=== PATIENT | male | born 1935 | race Caucasian/White ===

== ENCOUNTER 2017-01-03 15:19 | Inpatient (IN) | payer OTHER ==
[~2017-01-03] VITALS: Ht 180.3 cm; Wt 82.8 kg
--- NOTE | ~2017-01-03 | CON ---
[place], [place] REPORT OF CONSULTATION NAME: THEA MANNING UNIT #: [id number] ROOM: 422 DOCTOR: ESEQUIEL SUBRAMANIAN MD BIRTHDATE: [birth year] DOS: 01/03/2017 CARDIOLOGY CONSULTATION REASON FOR CONSULTATION: Elevated troponin level. HISTORY OF PRESENT ILLNESS: The patient is an 81-year-old man with a history of dementia who is brought in by emergency medical services from home at his 's request. He has become increasingly disabled and debilitated. He is now too weak to ambulate on his own and his is not strong enough to carry him. A visiting nurse recognized that he was becoming more weak and difficult to care for and therefore suggested that he be brought to the hospital for further assessment. The patient answers questions with a clear strong voice, but he is obviously confused and answers many of the questions with I do not remember. He denies chest pain, dyspnea, nausea, abdominal pain or other symptoms at this time, but does admit that he is too weak to get out of bed. Past history is not immediately available. The patient does admit that he has had heart disease with a heart catheterization in the past. He states that his physicians are at the [facility] in [place]. PAST HISTORY: Includes 1. Atrial fibrillation. 2. Atherosclerotic heart disease, status post previous myocardial infarction. Details not known. 3. History of cerebrovascular events. Details not known. 4. Status post carotid endarterectomy. 5. Essential hypertension. 6. Hyperlipidemia. 7. Glaucoma with secondary blindness. 8. Type 2 diabetes mellitus. 9. Status post appendectomy and cholecystectomy. FAMILY HISTORY: Positive for coronary artery disease in both parents. His mother in her 60s and father in his 40s. MEDICATIONS: Prior to admission, timolol eyedrops daily, Alphagan eyedrops b.i.d., apixaban 2.5 mg b.i.d., clopidogrel 75 mg daily, cyanocobalamin 500 mcg daily, glipizide 10 mg daily, metoprolol 25 mg b.i.d., and simvastatin 20 mg at bedtime. ALLERGIES: The chart indicates that he is ALLERGIC TO HYDROMORPHONE FROM DILAUDID. REVIEW OF SYSTEMS: The patient denies all symptoms aside from weakness on a 10-point review of systems. SOCIAL HISTORY: The patient is and lives with his . He does not [place], [place] REPORT OF CONSULTATION NAME: THEA MANNING UNIT #: [id number] ROOM: 422 DOCTOR: ESEQUIEL SUBRAMANIAN MD BIRTHDATE: [birth year] currently smoke or consume alcohol. He is blind, presumably from glaucoma. PHYSICAL EXAMINATION: GENERAL: The patient is an elderly white male who appears comfortable, lying flat in bed. He kept his eyes closed the entire interview. VITAL SIGNS: Pulse is 96 and irregularly irregular. Blood pressure is 160/90. He weighs 113.4 kilograms with a body mass index of 34.9. HEENT: Normocephalic and atraumatic. His oral mucosa is moist. Tongue is midline. NECK: Supple. He does have jugular distention to the angle of the jaw when sitting at a 15 degree angle. Carotids are full without bruits. He has no neck or supraclavicular masses. LUNGS: Respirations are unlabored. He has decreased breath sounds at the bases. I heard no wheezes or rales. CARDIOVASCULAR: His heart had an irregularly irregular rhythm. There were no murmurs or gallops. The PMI was not displaced. ABDOMEN: Soft and normally active without masses, organomegaly, bruits. He did admit to some tenderness in the suprapubic region. EXTREMITIES: Showed 2+ edema at the ankles and feet. Pedal pulses were absent. He did have multiple ulcerations on his ankles bilaterally. LABORATORY DATA: I reviewed his electrocardiograms, they show atrial fibrillation with a controlled ventricular response, premature ventricular contractions are present. There is a right bundle branch block present along with evidence for previous inferior wall myocardial infarction. No acute ST elevations are seen. The tracing is essentially unchanged from a previous one dated October 15, 2016. Hemoglobin is 12.2, hematocrit 37.7. There are 10,000 white cells and 256,000 platelets present. Sodium is 146, potassium 4.6, chloride 109, CO2 26, BUN 26 and creatinine 3.26, which appears to be at his baseline which was established in October of 2016. Previous creatinine levels from 2009 were normal at 0.9. Lactic acid is elevated at 2.9. His troponin is elevated at 0.839. IMPRESSION: 1. Atrial fibrillation with controlled ventricular response. 2. Elevated troponin. The etiology of this is not clear. It certainly does indicate myocardial necrosis, but not the mechanism. With the patient's elevated lactic acid level, possibilities include hypotension, severe dehydration, sepsis, etc. He apparently does have significant vascular disease and a non-ST elevation myocardial infarction is also possible, although appears unlikely based on his electrocardiogram. 3. Dementia. 4. Chronic renal insufficiency. 5. Type 2 diabetes mellitus. 6. History of essential hypertension. 7. Hyperlipidemia. PLAN: We will follow serial troponin levels and check an echocardiogram for left ventricular function. Given his multiple medical problems and poor overall state, I would rather avoid any advanced or invasive diagnostics in his [place], [place] REPORT OF CONSULTATION NAME: THEA MANNING UNIT #: [id number] ROOM: [facility] DOCTOR: ESEQUIEL SUBRAMANIAN MD BIRTHDATE: [birth year] management. Further recommendations will depend upon his course in the hospital and the results of his echocardiogram. Since the patient states that he has been hospitalized in the past at the [facility], [place], we will request their records since at this time, his database is very scant. I thank the hospitalist physicians for asking our advice regarding his management. ESEQUIEL SUBRAMANIAN MD CM:CONSTR:REPORT OF CONSULTATION 18 01/04/17 0357 interface
--- NOTE | ~2017-01-03 | PR ---
[place], [place] PROGRESS NOTE [id number] UN[facility] #: [id number] ROOM: 422 DOCTOR: RAMAKRISHNA BEASLEY MD,MEGAN BIRTHDATE: [birth year] DOS: 01/09/2017 SUBJECTIVE: He has been noted comfortable from the respiratory standpoint. Denies symptoms of acute shortness of breath, chest pain or sputum expectoration. The patient has been getting physical therapy on this hospitalization. OBJECTIVE: VITAL SIGNS: Shows normal temperature, respiratory rate 20, heart rate 90, and blood pressure 152/86. The pulse oxygen saturation on room air 95% saturation recorded. HEENT: Shows head was atraumatic. Eyes nonicterus. NECK: Supple. CARDIOVASCULAR SYSTEM: S1, S2 audible. LUNGS: The patient was noted without any wheezing or crackles. ABDOMEN: Soft, nontender. LABORATORY DATA: No labs were done today. IMPRESSION: 1. Stable respiratory status. The patient with small bilateral pleural fluid with overall debility as well. 2. Chronic kidney disease, stage 4. PLAN OF TREATMENT: No changes in the medical management, pulmonary standpoint. Continue other supportive therapy, plan of care. Usual medical management and other therapies. MEGAN DURBIN MD CM:PNTRANS [phone] MEGAN BEASLEY MD 01/09/17 1123 interface
--- NOTE | ~2017-01-03 | PR ---
[place], [place] PROGRESS NOTE NAME: THEA MANNING UNIT #: [id number] ROOM: 422 DOCTOR: ESEQUIEL SUBRAMANIAN MD BIRTHDATE: [birth year] DOS: 01/06/2017 CARDIOLOGY PROGRESS NOTE SUBJECTIVE: The patient was seen today at his bedside with his daughter in attendance. He is an 82-year-old man with dementia, who is being followed for acute on chronic systolic congestive heart failure. We have been adjusting his nitrates and hydralazine for left ventricular dysfunction and his beta ever for atherosclerotic heart disease and rate control and he seems to be tolerating that well. His renal functions have been stabilized with a creatinine of about 2.9. PHYSICAL EXAMINATION: VITAL SIGNS: Today, his pulse is about 90 and irregularly irregular. Blood pressure was 158/87. He was afebrile. NECK: Supple. He had no jugular distention. Carotids are full. LUNGS: Respirations were unlabored. His chest had decreased breath sounds at the bases. HEART: Had an irregularly irregular rhythm without murmurs or gallops. ABDOMEN: Soft. EXTREMITIES: Showed trace edema at the ankles. LABORATORY DATA: Hemoglobin is 12.4, white count 9900, platelet count 261,000. Sodium 142, potassium 4.1, BUN 33, creatinine 2.94. IMPRESSION: 1. Acute exacerbation of chronic systolic congestive heart failure. 2. Ischemic cardiomyopathy. 3. Severe mitral insufficiency, most likely due to ventricular dysfunction (functional mitral insufficiency). 4. Atrial fibrillation with controlled ventricular response. 5. Dementia. 6. Blindness due to glaucoma. 7. Chronic renal failure. 8. Type 2 diabetes mellitus. 9. History of essential hypertension. 10. Hyperlipidemia. PLAN: We will continue to adjust his hydralazine and may increase his nitrates for further management of his left ventricular dysfunction. I will also increase his beta blockers. We will continue to watch him along with his other physicians and continue to treat him empirically with guideline directed medical treatments, as noted previously we are avoiding KIM inhibitors because of his renal insufficiency. I thank the hospitalist physicians for asking our advice regarding his care. [place], [place] PROGRESS NOTE NAME: DENZELLOLITATHEA UNIT #: [id number] ROOM: 422 DOCTOR: ESEQUIEL SUBRAMANIAN MDTE: [birth year] ESEQUIEL SUBRAMANIAN MD CM:PNTRANS [phone] ESEQUIEL SUBRAMANIAN MD 01/07/17336 interface
--- NOTE | ~2017-01-03 | PR ---
[place], [place] PROGRESS NOTE NAME: [id number] UNIT #: [id number] ROOM: 422 DOCTOR: RAMAKRISHNA BEASLEY MD,MEGAN BIRTHDATE: [birth year] DOS: 01/08/2017 SUBJECTIVE: The patient has been noted comfortably resting on the bed without any acute respiratory distress and other acute symptoms. Denies symptoms of chest pain or any abdominal pain. OBJECTIVE: VITAL SIGNS: For the patient, which has been recorded shows his temperature was noted as normal. The respiratory rate of the patient recorded as 18, heart rate of 99, blood pressure 113/59-122/73. Pulse oxygen saturation of the patient recorded on room air 97% saturation. HEENT: No new change. NECK: Supple. CARDIOVASCULAR SYSTEM: S1, S2 audible. LUNGS: Noted mildly decreased breaths in the lower portion of the lungs bilaterally. ABDOMEN: Soft, nontender. EXTREMITIES: No edema at this time. LABORATORY DATA: BMP: BUN 35, creatinine 2.97. CBC this morning, WBC count of 11.9, hemoglobin 12.5, hematocrit 39.0. IMPRESSION: The patient with stable respiratory status, chronic kidney disease stage 4, for the patient with bilateral pleural fluid secondary to congestive heart failure, overall debility. PLAN OF TREATMENT: The patient has been doing well for this patient current treatment remains stable. Discharge planning, the patient noted in progress. Other supportive therapy, plan of management continued at this time. Usual care. All other treatment as in progress. MEGAN DURBIN MD CM:PNTRANS [id number] MEGAN BEASLEY MD 01/08/17 1527 interface
--- NOTE | ~2017-01-03 | PR ---
[place], [place] PROGRESS NOTE NAME: THEA MANNING UNIT #: [id number] ROOM: 422 DOCTOR: MARIVEL HSU MD BIRTHDATE: [birth year] DOS: 01/08/2017 CARDIOLOGY PROGRESS NOTE REASON FOR VISIT: Atrial fibrillation. SUBJECTIVE: The patient is feeling better. Denies any chest pain or shortness of breath. His breathing is much better. Denies any dizziness or palpitations. The patient is legally blind. No nausea, vomiting, no headache. No fever and chills, no cough. REVIEW OF SYSTEMS: Review of the 8 systems negative except as mentioned above. RHYTHM STRIPS: The patient was in atrial fibrillation. PHYSICAL EXAMINATION: VITAL SIGNS: Blood pressure 113/59, pulse 98, respiratory rate 18. GENERAL: Alert, comfortable, in no acute distress. HEENT: Pupils are round, the patient is blind legally, no jaundice. NECK: Supple, no distended neck veins, no carotid bruit. CHEST: Symmetrical, nontender. LUNGS: A few scattered rhonchi. HEART: Irregular, grade ____ 2/6 systolic murmur at the apical area. No S3. ABDOMEN: Benign, nontender. Bowel sounds normal. EXTREMITIES: Showed trace edema. Distal pulses are palpable. SKIN: Warm and dry. No cyanosis, no clubbing. IMPRESSION: 1. Chronic atrial fibrillation. 2. Borderline elevation of troponin due to renal failure. 3. Acute renal failure. 4. Pneumonia. 5. Cardiomyopathy, ejection fraction 30%. 6. Valvular heart disease, [id number] mitral ____ regurgitation. RECOMMENDATIONS: 1. The blood pressure and heart rates are stable. 2. Continue current medications. 3. If there are no contraindications, resume his Eliquis. 4. Continue the Lasix, beta-blockers, nitrates and hydralazine. 5. He was not on KIM or ARBs due to the chronic kidney disease. 6. There is no family at bedside. 7. We will discuss with him and his family regarding a LifeVest upon discharge due to his LV dysfunction. [place], [place] PROGRESS NOTE NAME: THEA MANNING UNIT #: [id number] ROOM: 422 DOCTOR: MARIVEL HSU MD BIRTHDATE: [birth year] MARIVEL HSU MD CM:PNTRANS [id number] MARIVEL HSU MD 01/09/1735 interface
--- NOTE | ~2017-01-03 | CON ---
[place], [place] REPORT OF CONSULTATION [id number] UNIT #: [id number] ROOM: 422 DOCTOR: RAMAKRISHNA BEASLEY MDMEGAN BIRTHDATE: [birth year] DOS: 01/04/2017 PULMONARY CONSULTATION, EVALUATION AND MANAGEMENT NOTE REASON FOR CONSULTATION: The consultation was requested for the patient for assessment of pleural fluid. HISTORY OF PRESENT ILLNESS: The patient is an 81-year-old white male, who has been brought to the hospital by his to the Emergency Room. The patient has been noted with multiple medical problems, which have been described. The patient was noted poor historian and unable to give me any history by himself. ____ difficulty of caring for him in the home setting. No specific symptoms were described. The patient had a CT scan of the abdomen and pelvis, which was completed for the patent that shows evidence of pleural fluids that were noted bilaterally. The patient is currently resting comfortably in the bed. He is not able to give me any history, all the history essentially for this patient was obtained from review of the current documentation, medical records for this patient, from the other physicians' records as well as nursing documentation. REVIEW OF SYSTEMS: Could not be completed due to the fact of the patient's lack of communication to me. PAST MEDICAL HISTORY: Noted: 1. Atrial fibrillation. 2. Blindness. 3. Coronary artery disease. 4. Mixed hyperlipidemia. 5. Type 2 diabetes mellitus. 6. History of past TIAs. 7. Coronary artery disease with previous myocardial infarctions. PAST SURGICAL HISTORY: Noted: 1. Appendectomy. 2. Cholecystectomy. SOCIAL HISTORY: The patient has not reported any tobacco use, alcohol or illicit drug use. FAMILY HISTORY: The patient was described as coronary artery disease in the mother, who at the age of ____ years old. Father between the ages of 40 and 50 years old from acute myocardial infarction as well. HOME MEDICATIONS: Noted as use of Alphagan eye drops, Plavix, vitamin B12, glipizide, metoprolol tartrate, simvastatin, and Timolol eye drops. PHYSICAL EXAMINATION: GENERAL: This is an 81-year-old white male, who has been noted currently awake and alert for this patient without any distress. The patient's height was recorded 5 feet 11 inches, weight of 195 pounds, BMI of 27.2. VITAL SIGNS: Recorded as normal temperature, respiratory rate 20, heart rate of [place], [place] REPORT OF CONSULTATION NAME: THEA MANNING UNIT #: [id number] ROOM: 422 DOCTOR: RAMAKRISHNA BEASLEY MD,MEGAN BIRTHDATE: [birth year] 84-96, blood pressure ____. Intake for this patient ____ documented. Pulse oxygen saturation on room air 95% saturation. HEENT: Head was atraumatic. Eyes nonicterus. NECK: Supple. CARDIOVASCULAR: S1, S2 audible. LUNGS: Showed decreased breath sounds for the patient noted at the lower portion of the lungs without any wheeze or crackles. ABDOMEN: Soft, nontender. Bowel sounds present. EXTREMITIES: The patient was noted without any edema, clubbing, or cyanosis. CENTRAL NERVOUS SYSTEM: Unable to assess for this patient because of the patient's lack of following vocal commands. MUSCULOSKELETAL: No obvious deformities. SKIN: Showed no lesions or rashes. ____. LABORATORY DATA: CBC of the patient on 01/03/2017, hemoglobin 12.2, hematocrit 37.7, platelet count and WBC count were normal. Lactic acid 2.9 noted yesterday and followup lactic acid 2.0. PT/INR for the patient recorded at 1.1 on 01/03/2017 on admission. The CMP on admission, BUN 26, creatinine 3.26, and glucose 166. Troponin 0.839, mildly elevated yesterday. The CK-MB, troponin of the patient serially 2 other sets were done. Troponin was decreased for the patient at 0.14 and the subsequent troponin ____ noted 0.47 further reduced. CMP of the patient this morning, BUN 25, creatinine 3.04 and glucose 133. Remaining CMP was normal. CBC this morning, WBC count ____, hemoglobin 12.4, hematocrit 38.8, platelet count 263,000. B12 and folic acid of the patient was noted as normal. RADIOLOGY DATA: Radiology data assessment for the patient. The chest x-ray of the patient that was done yesterday shows evidence of small pleural fluid basilar area of atelectasis with findings of possible congestive heart failure, fluid ____ has been larger on the left than the right side. CT scan of the head for this patient that was done on 01/03/2017 was reported without any acute intracranial pathologies. CT scan of the abdomen and pelvis on ____ CT of the thorax of the patient shows ____ moderate pleural fluid for the patient, bilateral area of compression atelectasis. Distended gallbladder noted, colonic diverticulosis per radiology's report as well. Additional chronic changes were described in the abdomen. IMPRESSION: 1. The patient will be currently admitted to the hospital with generalized weakness and fatigue for this patient most likely related to acute progressive kidney injury, possibly superimposed congestive heart failure to be considered, bilateral pleural fluid. There were no clinical signs of infection for this patient noted. Current ____ consistent with acute pneumonia on the chest x-ray and CT scan of the abdomen with lower portion CT of the thorax. 2. The patient with chronic blindness. 3. History of chronic atrial fibrillation as well. 4. ____ chronic kidney disease should be considered as well. 5. Overall significantly limited mobility for this patient and ambulation. PLAN OF TREATMENT: The patient will be assessed tomorrow morning with the [place], [place] REPORT OF CONSULTATION NAME: THEA MANNING UNIT #: [id number] ROOM: 422 DOCTOR: MEGAN PAREDES MD BIRTHDATE: [birth year] ultrasound for this patient for possible thoracentesis after obtaining consent from the patient's family members, his spouse, patient unable to give me any consent for the current procedure if necessary for thoracentesis. Fluid will be analyzed if there is sufficient amount present after thoracentesis. In the meantime, monitor kidney functions and management. ____ kidney problem will be continued. Supportive therapy, plan of management. Other supportive, plan and management and care. Usual treatment. Monitor any culture for this patient, that is, urine, blood and others. Thanks for allowing me to participate in the care of this patient. MEGAN DURBIN MD CM:CONSTR:REPORT OF CONSULTATION 1437 01/04/172035 interface
--- NOTE | ~2017-01-03 | PR ---
[place], [place] PROGRESS NOTE NAME: THEA MANNING UNIT #: [id number] ROOM: 422 DOCTOR: MEGAN PAREDES MD BIRTHDATE: [birth year] DOS: 01/06/2017 PULMONARY FOLLOWUP NOTE SUBJECTIVE: The patient has been noted comfortable at this time without any distress. The patient has been fed with assistance. He has not been noted with any distress at the present time. There was no coughing noted. There was no chest pain described. OBJECTIVE: VITAL SIGNS: Normal temperature, respiratory rate 18, heart rate 91, blood pressure 150/74. The pulse oxygen saturation of the patient on room air 97% saturation. HEENT: Examination shows no acute change. NECK: Supple. CARDIOVASCULAR: S1, S2 audible. LUNGS: Basilar portion of the lungs noted with decreased breath sounds. There was no wheezing or crackles. ABDOMEN: Soft, nontender. EXTREMITIES: Shows no new changes. LABORATORY DATA: CBC, mild anemia, otherwise CBC normal. CMP this morning, BUN 33, creatinine 2.94. IMPRESSION: The patient with history of chronic kidney disease with chest x-ray shows small bilateral pleural fluid at this time. The pleural fluid for the patient has been resolving with improvement in the aeration progress. PLAN OF TREATMENT: Continue the patient's current plan of therapy as ongoing. Usual care. All other supportive plan of therapy. No intervention from the pulmonary standpoint. The patient will be recommended about discharge to the half-way facility or other disposition which has been planned by the primary care attending. Discharge planning was discussed with the medical staff. [place], [place] PROGRESS NOTE NAME: THEA MNANING UNIT #: [id number] ROOM: [facility] DOCTOR: MEGAN PAREDES MD BIRTHDATE: [birth year] MEGAN DURBIN MD CM:PNTRANS 1121 MEGAN BEASLEY MD 01/07/1743 interface
--- NOTE | ~2017-01-03 | PR ---
[place], [place] PROGRESS NOTE NAME: THEA MANNING UNIT #: [id number] ROOM: 422 DOCTOR: ESEQUIEL SUBRAMANIAN MD BIRTHDATE: [birth year] DOS: 01/05/2017 CARDIOLOGY PROGRESS NOTE SUBJECTIVE: The patient was seen at his bedside today, 01/05/2017 for followup of his acute on chronic systolic congestive heart failure. He is lying almost flat in bed. He is confused and difficult to arouse, but appears to be comfortable. No family was available today. PHYSICAL EXAMINATION: VITAL SIGNS: On exam, his pulse is 75 and irregularly irregular, blood pressure is 140/90. He is afebrile. NECK: Supple. He has hepatojugular reflux, but no jugular distention. Carotids are full. LUNGS: Respirations are unlabored. He has decreased breath sounds at the bases. HEART: Has an irregularly irregular rhythm with a grade 2/6 holosystolic murmur at the apex. ABDOMEN: Slightly distended. EXTREMITIES: Show scars over his legs from an industrial accident many years ago. He does have pedal edema and several open ulcerations, especially on his left leg. LABORATORY DATA: Hemoglobin is 12.4, white count 11,200, platelet count 263,000. Sodium 144, potassium 4.5, BUN 28, creatinine 2.92, the creatinine level is dropping gradually and was down from 3.04 yesterday. IMPRESSION: 1. Acute exacerbation of chronic systolic congestive heart failure. 2. Ischemic cardiomyopathy. 3. Severe mitral insufficiency, most likely due to left ventricular dysfunction (functional mitral insufficiency). 4. Atrial fibrillation with controlled ventricular response. 5. Dementia. 6. Blindness. 7. Chronic renal failure. 8. Type 2 diabetes mellitus. 9. History of essential hypertension. 10. Hyperlipidemia. PLAN: We will continue to adjust his hydralazine and nitrates along with his beta-ever therapy. No aggressive or invasive evaluation or management plans are being made at this time, however. I thank the hospitalist group for asking our advice regarding his care. [place], [place] PROGRESS NOTE NAME: DESEAN MANNINGANE UNIT #: [id number] ROOM: 422 DOCTOR: ESEQUIEL SUBRAMANIAN MD BIRTHDATE: [birth year] ESEQUIEL SUBRAMANIAN MD CM:PNTRANS [id number] 3 ESEQUIEL SUBRAMANIAN MD 01/06/17633 interface
--- NOTE | ~2017-01-03 | PR ---
[place], [place] PROGRESS NOTE NAME: [facility] [id number] UNIT #: [id number] ROOM: 422 DOCTOR: RAMAKRISHNA BEASLEY MD,MEGAN BIRTHDATE: [birth year] DOS: 01/10/2017 SUBJECTIVE: He has been noted comfortably resting on his bed. The patient has not been reported symptoms of chest pain or any abdominal pain. The patient has been noted without any distress at the time of the assessment. OBJECTIVE: VITAL SIGNS: For the patient, which has been recorded showed the temperature of the patient noted as normal. The respiratory rate of the patient recorded as 20, heart rate 52, blood pressure 128/58. Pulse oxygen saturation of the patient recorded as 95% saturation on room air. HEENT: Examination shows head was atraumatic. Eyes: No icterus. NECK: Supple. CARDIOVASCULAR: S1, S2 audible. LUNGS: The patient was noted without any wheeze or crackles at the present time. ABDOMEN: Soft, nontender. IMPRESSION: The patient with chronic kidney disease stage 4 with congestive heart failure, small bilateral pleural fluid as well with overall debility. PLAN OF TREATMENT: No changes from the pulmonary standpoint for this patient. The patient has been awaiting for the authorization for this patient for discharge to the [facility]. Other previous treatment plan at this time will be continued. Supportive therapy, plan of management. No acute intervention will be necessary during today's assessment and pulmonary standpoint. MEGAN DURBIN MD CM:RACHEL [id number] MEGAN BEASLEY MD 01/10/171852 interface
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
--- NOTE | ~2017-01-03 | PR ---
[place], [place] PROGRESS NOTE NAME: [id number] UNIT #: [id number] ROOM: 422 DOCTOR: FABIO ROMERO MD BIRTHDATE: [birth year] DOS: 01/08/2017 NEPHROLOGY FOLLOWUP NOTE SUBJECTIVE: The patient was seen and examined. He is awake and alert. He is in no acute distress. He is eating lunch. He had no complaints. OBJECTIVE: VITAL SIGNS: Temperature 98.1, pulse 99, respiratory rate 18, blood pressure 113/59. HEENT: Shows no JVD. LUNGS: Clear. HEART: Normal S1, S2. ABDOMEN: Soft, nontender. EXTREMITIES: Showed no edema. LABORATORY DATA: Hemoglobin 12.5, white count of 11.9, platelets of 323, BUN 35, creatinine 2.97, sodium 144, potassium 4.1, CO2 of 27, calcium 8.8. ASSESSMENT AND PLAN: 1. Chronic kidney disease stage 4. Etiology is not quite clear. The patient's creatinine overall appears to be stable with some minor fluctuations. He will need outpatient renal followup. 2. H and H is stable. Continue to follow. 3. Hypertension. Continue medications. 4. Apparent congestive heart failure. The patient appears to be euvolemic. He is on a low dose of diuretics and appears stable. Again, the patient is stable from a renal standpoint for discharge. FABIO ROMERO MD CM:PNTRANS [id number] FABIO ROMERO MD 01/08/17 1403 interface
--- NOTE | ~2017-01-03 | PR ---
[place], [place] PROGRESS NOTE [id number] UN[facility] #: [id number] ROOM: 422 DOCTOR: FABIO ROMERO MD BIRTHDATE: [birth year] DOS: 01/07/2017 NEPHROLOGY FOLLOWUP NOTE SUBJECTIVE: The patient was seen and examined. He is resting in bed comfortably. He does not appear to be in any acute distress. He seems to be somewhat confused. I am not clear what his baseline mental status is. PHYSICAL EXAMINATION: VITAL SIGNS: Showed temperature 97.9, pulse 85, respiratory rate 18 and blood pressure 150/77. HEENT: Shows no JVD. LUNGS: Fairly clear. HEART: Normal S1, S2. ABDOMEN: Soft, nontender. There is no organomegaly. EXTREMITIES: Showed no edema. SKIN: Showed no overt rash. LABORATORY DATA: Reviewed. Hemoglobin 12.5, white count of 9.5, platelets 278. BUN 34, creatinine 2.9, sodium 143, potassium 4.2, CO2 of 26. Albumin 3.2. IMPRESSION AND PLAN: 1. Chronic kidney disease, which appears to be stage 4. The etiology is not quite clear. Overall, the patient's creatinine appears to be stable. He will need outpatient followup. 2. Anemia. H and H appears to be stable. Continue to follow. 3. Hypertension. Continue medications. 4. Apparent congestive heart failure. Cardiology is following. He appears to be euvolemic at this time. Diuretics ongoing at low dose. The patient is acceptable for discharge from a renal standpoint. FABIO ROMERO MD CM:PNTRANS [id number] FABIO ROMERO MD 01/07/17 1624 interface
--- NOTE | ~2017-01-03 | PR ---
[place], [place] PROGRESS NOTE NAME: THEA MANNING UNIT #: [id number] ROOM: 422 DOCTOR: MEGAN PAREDES MD BIRTHDATE: [birth year] DOS: 01/05/2017 PULMONARY FOLLOWUP SUBJECTIVE: He has been noted comfortable at this time without any distress. The patient has been noted without symptoms of chest pain or any abdominal pain. The patient has a PICC line inserted today for venous access. OBJECTIVE: VITAL SIGNS: For the patient which has been recorded showed the temperature noted normal, respiratory rate 18, heart rate 60, blood pressure 160/90 to 159/86. Intake for the patient recorded 190 mL, output were not documented. Pulse oxygen saturation of the patient noted on room air 96% saturation. HEENT: Examination shows no acute change. NECK: Supple. CARDIOVASCULAR: S1, S2 is audible. LUNGS: The patient was noted with decreased breath sounds in the lower lungs. ABDOMEN: Soft, nontender. LABORATORY DATA: BMP: BUN 28, creatinine 2.92. Glucose 129, remaining labs were normal. Electrolytes normal. Blood cultures, no bacterial growth from . Chest x-ray, 1-view of patient were noted PICC line in place with a small pleural fluid findings of congestive heart failure. IMPRESSION: 1. The patient who has been noted with a small to moderate pleural fluid as assessed with the ultrasound ____ for this patient, related to current acute kidney injury. 2. Congestive heart failure for this patient is very likely. 3. Overall severe debility and other medical illnesses. PLAN OF TREATMENT: At this time, conservative treatment. The patient would be advised for the pleural fluid. Thoracentesis will not be performed for this patient at this time. If the pleural fluid enlarges with the current conservative treatment, certainly thoracentesis would be considered at that time with reassessment of the ultrasound. The assessment and management has been discussed with the patient's spouse in detail who was present in the room with the patient at the time of the assessment today. [place], [place] PROGRESS NOTE NAME: THEA MANNING UNIT #: [id number] ROOM: 422 DOCTOR: MEGAN PAREDES MD BIRTHDATE: [birth year] MEGAN DURBIN MD CM:PNTRANS [phone] MEGAN BEASLEY MD 01/06/17 0449 interface
--- NOTE | ~2017-01-03 | PR ---
[place], [place] PROGRESS NOTE NAME: THEA MANNING [facility] #: [id number] UNIT #: [id number] ROOM: 422 DOCTOR: RAMAKRIHSNA BEASLEY MD,MEGAN BIRTHDATE: [birth year] DOS: 01/07/2017 SUBJECTIVE: The patient was seen and examined on 01/07/2017. He has been noted awake and alert without any distress. Denies symptoms of chest pain. The patient denies symptoms of coughing or any sputum expectoration. OBJECTIVE: VITAL SIGNS: For the patient which has been recorded showed the temperature noted normal, respiratory rate 17, heart rate 81, blood pressure 110/58. The pulse oxygen saturation of the patient recorded as 96% on 4 liters cannula. HEENT: Examination shows no acute change. NECK: Supple. CARDIOVASCULAR: S1, S2 audible. LUNGS: Noted without any wheezing or crackles at the present time. Breaths are noted mild to moderately decreased in the lower portion of the lungs bilaterally. ABDOMEN: Soft, nontender. LABORATORY DATA: The patient's CBC this morning: WBC count was normal, hemoglobin 12.5, hematocrit 38.3, platelet count was normal. CMP of the patient this morning, BUN 34, creatinine 2.87. IMPRESSION: The patient with chronic kidney disease stage 3 with a pleural fluid for the patient, which has been present bilaterally, seem to be gradually resolving with improvement in the kidney functions. Otherwise based on respiratory status, the patient remain stable. PLAN OF TREATMENT: No changes in plan of management. Discharge planning. The patient has been already discussed with the primary care attending. Pleural fluid at this time seems not to be requiring any intervention because they has been improving with current medical management. MEGAN DURBIN MD CM:PNTRANS [id number] [phone] MEGAN BEASLEY MD 01/07/172204 interface
--- NOTE | ~2017-01-03 | PR ---
[place], [place] PROGRESS NOTE NAME: THEA MANNING UNIT #: [id number] ROOM: 422 DOCTOR: MARIVEL HSU MD BIRTHDATE: [birth year] DOS: 01/07/2017 CARDIOLOGY FOLLOWUP VISIT NOTE REASON FOR VISIT: Congestive heart failure. HISTORY OF PRESENT ILLNESS: The patient is alert, oriented, no acute distress. Denies any chest pain or palpitations. Breathing is much better. No PND, no orthopnea. REVIEW OF SYSTEMS: Review of the 8 systems negative except as mentioned above. RHYTHM STRIPS: The patient in atrial fibrillation. PHYSICAL EXAMINATION: VITAL SIGNS: Blood pressure 155/66, pulse 80, respiratory rate is 18. GENERAL: Alert, comfortable, in no acute distress. HEAD AND NECK: Pupils are round, equal. No jaundice. NECK: Supple, no distended neck veins, no carotid bruits. CHEST: Symmetrical, nontender. LUNGS: Few scattered rhonchi. HEART: Irregular. No S3. Grade 1/6 systolic murmur. ABDOMEN: Bowel sounds normal. EXTREMITIES: Showed no edema. Distal pulses are palpable. SKIN: Warm and dry. No cyanosis, no clubbing. REVIEW OF THE DIAGNOSTICS TESTS: Hemoglobin 12.5. Creatinine 2.87. IMPRESSION: 1. Acute on chronic systolic heart failure. 2. Chronic atrial fibrillation. 3. Acute renal failure. 4. Borderline elevation of troponin due to acute renal failure. RECOMMENDATIONS: 1. Continue current medications. 2. Resume Eliquis 2.5 mg twice daily for the atrial fibrillation. 3. Continue beta ever . 4. There is no family at bedside at the time of my examination. [place], [place] PROGRESS NOTE NAME: THEA MANNING UNIT #: [id number] ROOM: 422 DOCTOR: MARIVEL HSU MD BIRTHDATE: [birth year] MARIVEL HSU MD CM:PNTRANS [phone] MARIVEL HSU MD 01/08/17 0012 interface
[~2017-01-03 15:19] MED LIST: ALPHAGAN P 15 M15 M1 OPH; ASPIRIN324 MG PO; Aquaphor T; B12,B-12,B 12500 MC1 PO; COSOPT 2%-0.5%10 ML OPH; DIGOXIN0.25 MG PO; ELIQUIS2.5 M1 PO; GLIPIZIDE5 MG PO; LISINOPRIL10 M1 PO; LISINOPRIL10 MG PO; Lopressor25 MG PO; METFORMIN HCL1000 MG PO; PLAVIX75 M1 PO; PLAVIX75 MG PO; TOPROL XL50 MG PO; ZOCOR20 MG PO
[2017-01-03] MEDS ORDERED: BETIMOL5 M1 OP (15:22)
[2017-01-03 15:25] VITALS: BP 172/95
[2017-01-03 16:00] VITALS: BP 173/92
[2017-01-03 16:13] LABS: BASO # 0.1 10*3/uL (0.0-0.1); BASO % 0.5 % (0.0-1.0); EOS # 0.3 10*3/uL (0.0-0.4); EOS % 2.7 % (1.0-4.0); HEMATOCRIT 37.7 % (42.0-52.0); HEMOGLOBIN 12.2 g/dl (14.0-18.0); LYMPH # 1.7 10*3/uL (1.3-4.4); LYMPH % 16.4 % (27.0-41.0); MEAN CELL VOLUME 90.4 fl (80.0-94.0); MEAN CORPUSCULAR HGB 29.3 pg (27.0-31.0); MEAN CORPUSCULAR HGB CONC 32.4 g/dl (33.0-37.0); MEAN PLATELET VOLUME 9.5 fl (9.6-12.3); MONO % 9.8 % (3.0-9.0); NEUT # 7.1 10*3/uL (2.3-7.9); NEUT % 70.2 % (47.0-73.0); PLATELET COUNT AUTOMATED 259 10*3/uL (130-400); RED BLOOD COUNT 4.17 10*6/uL (4.50-5.90); RED CELL DISTRI WIDTH 13.4 % (0-14.5)
[2017-01-03 16:20] LABS: INTERNATIONAL NORM RATIO 1.1 (2.0-3.5); PROTHROMBIN TIME 11.8 SECONDS (9.0-12.4)
[2017-01-03 16:30] LABS: ALBUMIN 3.3 gm/dl (3.1-4.5); BILIRUBIN, TOTAL 0.7 mg/dl (0.2-1.0); POTASSIUM 4.6 mmol/L (3.5-5.1); TOTAL PROTEIN 6.6 gm/dL (6.4-8.2)
[2017-01-03 16:32] LABS: TROPONIN I 0.839 ng/ml (<0.045)
[2017-01-03 16:37] LABS: BILIRUBIN NEGATIVE (NEGATIVE); BLOOD 1+ (NEGATIVE); CLARITY SL CLOUDY (CLEAR); COLOR YELLOW (YELLOW); GLUCOSE NEGATIVE (NEGATIVE); KETONE NEGATIVE (NEGATIVE); LEUKO ESTERASE TRACE (NEGATIVE); NITRITE NEGATIVE (NEGATIVE); PH 5.5 (5.0-9.0); PROTEIN TRACE (NEGATIVE); SPECIFIC GRAVITY 1.025 (1.005-1.030); UROBILINOGEN 0.2 E.U./dl (0.2-1.0)
[2017-01-03 16:44] LABS: BACTERIA 4+; EPITHELIAL CELLS 0-2; RBC 0-2 rbc/hpf (0-2); URINE REFLEX COMMENT YES (NO)
[2017-01-03 18:10] LABS: LA>2 REFLEX 2 HR DRAW NOW
[2017-01-03 18:23] VITALS: BP 173/92
[2017-01-03 18:30] LABS: LA>2 RFLX FOLLOW UP AT 2 HRS 2.2 mmol/L (0.4-2.0)
[2017-01-03 20:00] VITALS: BP 173/92
[2017-01-03 20:23] LABS: LA>2 REFLEX 4 HR DRAW NOW
[2017-01-03 20:30] VITALS: BP 160/98; BP 168/96
[2017-01-04] VITALS (7 sets, daily range): BP systolic 158–184; BP diastolic 84–100
[2017-01-04 00:47] LABS: CKMB 2.9 ng/ml (0.5-3.6)
[2017-01-04 00:52] LABS: TROPONIN I 0.614 ng/ml (<0.045)
[2017-01-04 05:54] LABS: CKMB 2.7 ng/ml (0.5-3.6)
[2017-01-04 06:02] LABS: TROPONIN I 0.479 ng/ml (<0.045)
[2017-01-04 06:30] LABS: HEMOGLOBIN A1c 7.2 % (4.8-5.6)
[2017-01-04 06:37] LABS: ALBUMIN 3.4 gm/dl (3.1-4.5); BILIRUBIN, TOTAL 0.7 mg/dl (0.2-1.0); FREE T4 1.24 ng/dl (0.76-1.46); MAGNESIUM 1.9 mg/dL (1.5-2.1); PHOSPHOROUS 3.6 mg/dL (2.5-4.9); POTASSIUM 4.5 mmol/L (3.5-5.1); TOTAL PROTEIN 6.8 gm/dL (6.4-8.2)
[2017-01-04 06:41] LABS: THYROID STIM HORMONE (HS) 1.71 uIU/ml (0.358-4.75)
[2017-01-04 07:02] LABS: BASO # 0.1 10*3/uL (0.0-0.1); BASO % 0.6 % (0.0-1.0); EOS # 0.2 10*3/uL (0.0-0.4); HEMATOCRIT 38.8 % (42.0-52.0); HEMOGLOBIN 12.4 g/dl (14.0-18.0); IG # 0.1 10*3/uL (0.0-0.1); LYMPH # 1.7 10*3/uL (1.3-4.4); LYMPH % 15.1 % (27.0-41.0); MEAN CELL VOLUME 93.3 fl (80.0-94.0); MEAN CORPUSCULAR HGB 29.8 pg (27.0-31.0); MONO # 1.2 10*3/uL (0.1-1.0); MONO % 11.1 % (3.0-9.0); NEUT # 7.9 10*3/uL (2.3-7.9); NEUT % 70.8 % (47.0-73.0); PLATELET COUNT AUTOMATED 263 10*3/uL (130-400); RED BLOOD COUNT 4.16 10*6/uL (4.50-5.90); RED CELL DISTRI WIDTH 13.3 % (0-14.5); WHITE BLOOD COUNT 11.2 10*3/uL (4.8-10.8)
[2017-01-04 07:11] LABS: INTERNATIONAL NORM RATIO 1.1 (2.0-3.5); PROTHROMBIN TIME 11.9 SECONDS (9.0-12.4)
[2017-01-04 07:22] LABS: VITAMIN D, 25-HYDROXY 9.3 ng/mL (30-100)
[2017-01-04 07:23] LABS: FOLIC ACID 4.57 ng/mL (>5.38)
[2017-01-04 12:42] LABS: CKMB 2.3 ng/ml (0.5-3.6)
[2017-01-04 12:51] LABS: TROPONIN I 0.4 ng/ml (<0.045)
[2017-01-05] VITALS: BP 159/86
[2017-01-05 07:28] LABS: ALBUMIN 3.4 gm/dl (3.1-4.5); POTASSIUM 4.5 mmol/L (3.5-5.1)
[2017-01-05 08:00] VITALS: BP 160/90
[2017-01-05 12:00] VITALS: BP 150/90
[2017-01-05 16:00] VITALS: BP 140/90
[2017-01-05 20:00] VITALS: BP 144/89
[2017-01-06] VITALS: BP 148/74
[2017-01-06 07:01] LABS: BASO % 0.4 % (0.0-1.0); EOS # 0.3 10*3/uL (0.0-0.4); EOS % 2.9 % (1.0-4.0); HEMATOCRIT 37.4 % (42.0-52.0); HEMOGLOBIN 12.4 g/dl (14.0-18.0); IG # 0.1 10*3/uL (0.0-0.1); LYMPH # 1.4 10*3/uL (1.3-4.4); LYMPH % 13.9 % (27.0-41.0); MEAN CELL VOLUME 89.3 fl (80.0-94.0); MEAN CORPUSCULAR HGB 29.6 pg (27.0-31.0); MEAN CORPUSCULAR HGB CONC 33.2 g/dl (33.0-37.0); MEAN PLATELET VOLUME 10.1 fl (9.6-12.3); MONO # 0.9 10*3/uL (0.1-1.0); MONO % 9.2 % (3.0-9.0); NEUT # 7.2 10*3/uL (2.3-7.9); NEUT % 72.9 % (47.0-73.0); PLATELET COUNT AUTOMATED 261 10*3/uL (130-400); RED BLOOD COUNT 4.19 10*6/uL (4.50-5.90); RED CELL DISTRI WIDTH 13.3 % (0-14.5); WHITE BLOOD COUNT 9.9 10*3/uL (4.8-10.8)
[2017-01-06 07:12] LABS: POTASSIUM 4.1 mmol/L (3.5-5.1)
[2017-01-06 07:15] LABS: ALBUMIN 3.3 gm/dl (3.1-4.5); BILIRUBIN, TOTAL 0.7 mg/dl (0.2-1.0); TOTAL PROTEIN 6.5 gm/dL (6.4-8.2)
[2017-01-06 08:00] VITALS: BP 150/74
[2017-01-06 12:00] VITALS: BP 158/87
[2017-01-06 16:00] VITALS: BP 129/88
[2017-01-06 20:00] VITALS: BP 147/80
[2017-01-07] VITALS: BP 139/82
[2017-01-07 05:54] LABS: BASO % 0.4 % (0.0-1.0); EOS # 0.3 10*3/uL (0.0-0.4); EOS % 2.8 % (1.0-4.0); HEMATOCRIT 38.3 % (42.0-52.0); HEMOGLOBIN 12.5 g/dl (14.0-18.0); IG # 0.1 10*3/uL (0.0-0.1); LYMPH # 1.7 10*3/uL (1.3-4.4); LYMPH % 17.9 % (27.0-41.0); MEAN CELL VOLUME 90.1 fl (80.0-94.0); MEAN CORPUSCULAR HGB 29.4 pg (27.0-31.0); MEAN CORPUSCULAR HGB CONC 32.6 g/dl (33.0-37.0); MEAN PLATELET VOLUME 10.2 fl (9.6-12.3); MONO % 10.7 % (3.0-9.0); NEUT # 6.5 10*3/uL (2.3-7.9); NEUT % 67.7 % (47.0-73.0); PLATELET COUNT AUTOMATED 278 10*3/uL (130-400); RED BLOOD COUNT 4.25 10*6/uL (4.50-5.90); RED CELL DISTRI WIDTH 13.4 % (0-14.5); WHITE BLOOD COUNT 9.5 10*3/uL (4.8-10.8)
[2017-01-07 06:02] LABS: ALBUMIN 3.2 gm/dl (3.1-4.5); BILIRUBIN, TOTAL 0.6 mg/dl (0.2-1.0); POTASSIUM 4.2 mmol/L (3.5-5.1); TOTAL PROTEIN 6.6 gm/dL (6.4-8.2)
[2017-01-07 07:40] VITALS: BP 155/66
[2017-01-07 12:00] VITALS: BP 150/77
[2017-01-07 16:00] VITALS: BP 146/76
[2017-01-07 20:00] VITALS: BP 110/58
[2017-01-08] VITALS: BP 117/71
[2017-01-08 06:18] LABS: BASO # 0.1 10*3/uL (0.0-0.1); BASO % 0.4 % (0.0-1.0); EOS # 0.1 10*3/uL (0.0-0.4); EOS % 1.2 % (1.0-4.0); HEMOGLOBIN 12.5 g/dl (14.0-18.0); IG # 0.1 10*3/uL (0.0-0.1); LYMPH # 1.3 10*3/uL (1.3-4.4); LYMPH % 11.1 % (27.0-41.0); MEAN CELL VOLUME 92.4 fl (80.0-94.0); MEAN CORPUSCULAR HGB 29.6 pg (27.0-31.0); MEAN CORPUSCULAR HGB CONC 32.1 g/dl (33.0-37.0); MEAN PLATELET VOLUME 10.2 fl (9.6-12.3); MONO # 1.1 10*3/uL (0.1-1.0); MONO % 8.9 % (3.0-9.0); NEUT # 9.3 10*3/uL (2.3-7.9); NEUT % 77.9 % (47.0-73.0); PLATELET COUNT AUTOMATED 323 10*3/uL (130-400); RED BLOOD COUNT 4.22 10*6/uL (4.50-5.90); RED CELL DISTRI WIDTH 13.3 % (0-14.5); WHITE BLOOD COUNT 11.9 10*3/uL (4.8-10.8)
[2017-01-08 06:34] LABS: POTASSIUM 4.1 mmol/L (3.5-5.1)
[2017-01-08 08:00] VITALS: BP 122/73
[2017-01-08 12:00] VITALS: BP 113/59
[2017-01-08 16:00] VITALS: BP 118/59
[2017-01-08 20:00] VITALS: BP 98/44
[2017-01-09] VITALS: BP 128/66
[2017-01-09 04:00] VITALS: BP 137/74
[2017-01-09 08:00] VITALS: BP 152/86
[2017-01-09 12:00] VITALS: BP 121/79
[2017-01-09 16:00] VITALS: BP 113/62
[2017-01-09 20:00] VITALS: BP 124/71
[2017-01-10] VITALS: BP 125/85
[2017-01-10 08:00] VITALS: BP 128/58
[2017-01-10 12:00] VITALS: BP 123/57
[2017-01-10] MEDS ORDERED: RISPERDAL M-TA0.5 MG BC (13:08)
[2017-01-10] MEDS ORDERED: APRESOLINE25 MG PO (13:08)
[2017-01-10] MEDS ORDERED: LEVAQUIN750 M1 PO (13:08)
[2017-01-10] MEDS ORDERED: IMDUR SA60 M1 PO (13:08)
[2017-01-10] MEDS ORDERED: FUROSEMIDE20 M1 PO (13:08)
[2017-01-10] MEDS ORDERED: Tobrex Ophth S2.5 ML OPH (13:08)
[2017-01-10] MEDS ORDERED: NATURE'S BLEND F1 MG PO (13:08)
[2017-01-10] MEDS ORDERED: D-1000 185 MG-11 TAB PO (13:08)
[2017-01-10] MEDS ORDERED: METOPROLOL SUC100 M1 PO (13:08)
== END 2017-01-10 15:00 | disposition other institution (70) | DRG 177 ==
LOC: ED 15:19 → EDHOLD 17:49 → 4E 17:49
PROVIDERS: Hospitalist; Internal Medicine; Internal Medicine Nephrology; Nurse Practitioner Family
PROC: 02HV33Z Insertion of Infusion Device into Superior Vena Cava, Percutaneous Approach (ICD-10-PCS; principal; 2017-01-05)
DX: J15.6 Pneumonia due to other Gram-negative bacteria (principal); I50.23 Acute on chronic systolic (congestive) heart failure; N18.4 Chronic kidney disease, stage 4 (severe); E87.0 Hyperosmolality and hypernatremia; N17.9 Acute kidney failure, unspecified; E87.2 Acidosis; I38 Endocarditis, valve unspecified; I13.0 Hypertensive heart and chronic kidney disease with heart failure and stage 1 through stage 4 chronic kidney disease, or unspecified chronic kidney disease; E11.22 Type 2 diabetes mellitus with diabetic chronic kidney disease; D53.9 Nutritional anemia, unspecified; E11.65 Type 2 diabetes mellitus with hyperglycemia; F03.90 Unspecified dementia, unspecified severity, without behavioral disturbance, psychotic disturbance, mood disturbance, and anxiety; H40.9 Unspecified glaucoma; H54.0 Blindness, both eyes; I48.2 Chronic atrial fibrillation; I34.0 Nonrheumatic mitral (valve) insufficiency; E78.2 Mixed hyperlipidemia; I25.10 Atherosclerotic heart disease of native coronary artery without angina pectoris; I25.5 Ischemic cardiomyopathy; Z90.49 Acquired absence of other specified parts of digestive tract; Z82.49 Family history of ischemic heart disease and other diseases of the circulatory system; Z88.8 Allergy status to other drugs, medicaments and biological substances; Z79.899 Other long term (current) drug therapy; I25.2 Old myocardial infarction

== ENCOUNTER 2017-10-29 00:21 | Inpatient (IN) | payer OTHER ==
[2017-10-29] VITALS (9 sets, daily range): BP systolic 114–160; BP diastolic 56–87
[~2017-10-29] VITALS: Ht 180.3 cm; Wt 72.3 kg
--- NOTE | ~2017-10-29 | PR ---
[place], [place] PROGRESS NOTE NAME: THEA MANNING UNIT #: [id number] ROOM: 506 DOCTOR: MUNA FLORES MD BIRTHDATE: [birth year] DOS: 10/30/2017 SUBJECTIVE: The patient appears comfortable, not giving much history. PHYSICAL EXAMINATION: VITAL SIGNS: Blood pressure 150/78, heart rate 66 beats per minute, breathing 18 times per minute, temperature 98 degrees Fahrenheit. GENERAL APPEARANCE: The patient is pleasantly confused. HEENT AND NECK: Exam within normal limits. CARDIOVASCULAR SYSTEM: Heart rate is regular in rate and rhythm. S1 and S2 normally audible. LUNGS: Clear to auscultation. ABDOMEN: Soft, nontender. No obvious organomegaly. Bowel sounds are present. EXTREMITIES: Without significant cyanosis or edema. IMPRESSION: 1. Swallowing study, recommended soft diet by speech therapy. 2. The patient with aspiration prior to coming to the hospital. Food was suctioned out and now is being followed by Dr. Mei. Repeat chest x-ray showed moderate left pleural effusion and underlying interstitial disease. 3. Ventricular tachycardia for which the patient is being evaluated by Cardiology and kept on metoprolol. 4. The patient with onychomycosis being followed by Podiatry. 5. Adult failure to thrive and multiple falls with overall poor health. 6. Chronic kidney disease stage 4. I will repeat serum electrolytes tomorrow. The patient is being encouraged to eat. 7. Benign essential hypertension. Blood pressure is being monitored and treated. 8. History of coronary artery disease and [place], presently without chest pains. MUNA FLORES MD CM:PNTRANS 00 MUNA FLORES MD 10/31/175 interface
--- NOTE | ~2017-10-29 | CON ---
[place], [place] REPORT OF CONSULTATION NAME: THEA MANNING UNIT #: [id number] ROOM: 506 DOCTOR: MEGAN PAREDES MD BIRTHDATE: [birth year] DOS: 10/29/2017 PULMONARY CONSULTATION, EVALUATION, AND MANAGEMENT CONSULTATION REQUESTED BY: Dr. Pickard. REASON FOR CONSULTATION: For possibility of aspiration of foreign body. HISTORY OF PRESENT ILLNESS: This is an 82-year-old white male patient who has been brought to the hospital by the EMS. The patient has not been able to give me any history. All the questions asked for the patient, the answer was no. The medical record of the patient reviewed for the patient's consultation and history of component from current documentation by the other physician notes and the nursing notes. He has been brought to the hospital by the EMS. The patient was described possibly for an object in the throat for the patient's shortness of breath. The patient was noted quite anxious, coughing in the ambulance. The patient has been brought to the hospital and noted with possibility of chest congestion and congestive heart failure. The x-rays of the patient were done, which does not show any opaque foreign body. The patient was choking on the food at home as described by the and had choked on the food yesterday as well. He has not been noted with any distress this afternoon at about 1:00 p.m. The patient was assessed. He has not been noted with obvious coughing at the present time. Noted, the patient with awake and alert, but not aware of the surroundings. REVIEW OF SYSTEMS: Could not be obtained for the patient. The patient unable to have verbal communication. PAST MEDICAL HISTORY: Has been reported as 1. History of atrial fibrillation. 2. Blindness of both eyes. 3. Chronic kidney disease, stage 4 reported. 4. Hyperlipidemia. 5. Essential hypertension. 6. Type 2 diabetes mellitus. PAST SURGICAL HISTORY: The patient recorded as 1. Appendectomy: 2. Cholecystectomy. 3. Carotid endarterectomy. 4. Cardiac catheterization. SOCIAL HISTORY: The patient was reported no history of tobacco, alcohol, or any illicit drug use. The patient stated has worked in the [employer] for 25 years. FAMILY HISTORY: Has been recorded as father with complication of myocardial infarction. Mother also with complication related to myocardial infarction. HOME MEDICATIONS: Reported as Imdur, vitamin D, vitamin B12, Risperdal, Lasix, [place], [place] REPORT OF CONSULTATION [id number] #: [id number] ROOM: 506 DOCTOR: RAMAKRISHNA BEASLEY MDMEGAN BIRTHDATE: [birth year] folic acid, Eliquis, atenolol, glipizide, simvastatin, and metoprolol. DRUG ALLERGIES: The drug allergy history of the patient was noted allergy to Dilaudid. PHYSICAL EXAMINATION: GENERAL: This is an 82-year-old white male who has been currently noted to be awake, appeared to be benign. He had been comfortably resting on his bed at this time of assessment. His height was recorded by the nursing staff on the current admission with height of 5 feet 11 inches, weight 259 pounds, and BMI 22. VITAL SIGNS: Vital signs of the patient was recorded as temperature 99.2 degrees Fahrenheit, normal temperature, respiratory rate 15-18, heart rate 70-68, and blood pressure 131/59-116/66. Pulse oxygen saturation on room air is 98% and on 2 liters is 96% saturation. HEENT: On examination, blindness of the eyes. Head was atraumatic. Oral mucosa moist. NECK: Supple. CARDIOVASCULAR: S1, S2 audible. LUNGS: The patient was noted without any wheezing or crackles at the present time. ABDOMEN: Soft, nontender, and flat. EXTREMITIES: The patient noted without any edema. CENTRAL NERVOUS SYSTEM: No gross focal neurologic deficit. The patient is able to follow the commands and further examination cannot be completely performed. VISIBLE SKIN: No lesions or rashes. MUSCULOSKELETAL: The patient was noted without any acute deformities. LABORATORY DATA: The review of the labs for this patient. The lactic acid of the patient that was done for the patient on admission of the patient was noted as lactic acid 1.6, normal this morning. CBC this morning, completely normal. The PT/INR for the patient noted as normal. CMP of the patient this morning, BUN 34, creatinine 2.33, and glucose 208. The chest x-ray that was done for the patient, one view in the Emergency Room was reviewed for the patient was noted no acute pulmonary infiltration. Possible small pleural fluid cannot be excluded completely. Right lung appeared to be clear. There was no visible foreign body for the patient, which was noted opaque. IMPRESSION: 1. The patient who had been currently admitted to the hospital with a presumed aspiration of the foreign body of the patient and food. The patient without any coughing or distress at this time for assessment. 2. Past history of congestive heart failure with pleural fluid and chronic kidney disease noted with previous admission as the patient was assessed for pleural fluid during his last hospitalization in 12/2016. 3. 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 4. Type 2 diabetes mellitus. 5. Atrial fibrillation, chronic anticoagulation with Eliquis. PLAN OF MANAGEMENT: At this time, simple close observation needs to be done. [place], [place] REPORT OF CONSULTATION NAME: THEA MANNING UNIT #: [id number] ROOM: [facility] DOCTOR: MEGAN PAREDES MD BIRTHDATE: [birth year] Monitor for any distress for this patient if the patient does have further coughing and others, he may be assessed for the fibrobronchoscopy; otherwise, no intervention will be planned. I am not sure the patient does have any aspiration at this time, at least with the clinical assessment seems to be unlikely. However, the patient needs to be assessed for possibility of aspiration, dysphagia, ____ modified barium swallow assessment and by the speech therapy. The speech therapy of the patient and modified barium swallow was ordered for the patient to be done in the morning. Chest x-ray, PA and lateral view for the patient will be done in the morning to assess for interval development of other problems including infiltration, atelectasis, or congestive heart failure and also to exclude any pleural fluid on the left side. All other supportive care, plan of management, and close monitoring of the patient for eating with assistance to be given by the nursing staff and nursing aides. Thanks for allowing me to participate in the care of this patient. MEGAN DURBIN MD CM:CONSTR:REPORT OF CONSULTATION 1607 10/30/17 0023 interface
--- NOTE | ~2017-10-29 | DS ---
[place], [place] DISCHARGE SUMMARY NAME: [id number] UNIT #: [id number] ROOM: 506 DOCTOR: MUNA FLORES MD BIRTHDATE: [birth year] DOS: 10/31/2017 DISCHARGE DIAGNOSES: 1. The patient with moderate left-sided pleural effusion. The patient's daughter refused thoracentesis by Dr. Mei. 2. Aspiration and choking on dinner. The patient's throat was suctioned and food was disimpacted. 3. Speech therapy and swallowing study recommended soft diet with thin liquids. 4. Short episode of ventricular tachycardia evaluated by Cardiology and the patient kept on metoprolol. 5. Onychomycosis being followed by Podiatry. 6. Failure to thrive and multiple falls with poor overall health. 7. Stage 4 chronic kidney disease. 8. Benign essential hypertension. 9. Type 2 diabetes mellitus. 10. Benign essential hypertension. 11. History of coronary artery disease and IN in the past. 12. The patient was admitted when he was brought in after choking on his food. The patient's throat was cleared and food was removed after which he was breathing better. The patient apparently lives at home with family with the help. After admission, he did not give me much history. The patient was started on treatment with Zosyn and Dr. Mei, the human service technician evaluated him. Dr. Mei recommended drainage of left pleural effusion, but patient's daughter apparently refused. Dr. Mei has recommended to follow up with himself in 2 weeks and a chest x-ray to be repeated. I will send him home on Augmentin. 13. The patient had trigeminy and quadrigeminy and 9 beat ventricular tachycardia for which front office assistant increased his Lopressor. 14. Very poor health, adult failure to thrive. 15. Chronic atrial fibrillation. The patient anticoagulated with apixaban. Heart rates are controlled. 16. Type 2 diabetes mellitus. Blood sugars are monitored and treated. 17. Benign essential hypertension. Blood pressures are monitored and treated and followed. 18. Coronary artery disease of the [place] vessels without chest pains. Cardiac enzymes were negative. LABORATORY DATA: CT of the chest showing left basilar pleural effusion and airspace disease from uncertain etiology, evaluated by Dr. Mei. Modified barium swallowing study recommended soft diet and thin liquids. DISCHARGE MANAGEMENT: Soft diet, simvastatin 40 mg a day, hydralazine 10 mg every 8 hours, Imdur 60 mg a day, timolol eyedrops 1 drop in affected eye daily, glipizide 10 mg daily, metoprolol 25 mg b.i.d., apixaban 2.5 mg b.i.d., brimonidine eyedrops 1 drop to affected eye b.i.d., miconazole applied to affected skin 3 times a day, Augmentin 875 mg twice a day for a week. Follow up with Dr. Mei in 2 weeks and a chest x-ray in 2 weeks. [place], [place] DISCHARGE SUMMARY NAME: THEA MANNING UNIT #: [id number] ROOM: [facility] DOCTOR: MUNA FLORES MD BIRTHDATE: [birth year] MUNA FLORES MD CM:RASHEED [id number] MUNA FLORES MD 10/31/172217 interface
--- NOTE | ~2017-10-29 | WRIGHTHP ---
[place], [place] PATIENT HISTORY AND PHYSICAL EXAM [id number] UNIT #: [id number] ROOM: 506 DOCTOR: MUNA FLORES MD BIRTHDATE: [birth year] DOS: 10/29/2017 HISTORY OF PRESENT ILLNESS: The patient is an 82-year-old gentleman who lives at home with the help of his , apparently choked on his food. Patient was brought to the Emergency Department and food was suctioned out of his airway. Patient was very anxious and coughing. Patient was brought to the Emergency Department and after initial treatment recommended for admission and further management. Patient's chest x-ray is to be repeated tomorrow and we are getting Speech Therapy to see him and he is being fed with caution. Chest x-ray was performed. No chest pains. Patient is breathing normally now. REVIEW OF SYSTEMS: LUNGS: Episode of choking on food and coughing. GASTROINTESTINAL: No nausea, vomiting, diarrhea or constipation. CARDIOVASCULAR: No chest pain or palpitations. FAMILY HISTORY: Noncontributory. SOCIAL HISTORY: Lives at home with the help of his . Denies smoking cigarettes, alcohol and drug abuse. MEDICATIONS: Patient takes Imdur, metoprolol, timolol eyedrops, simvastatin, apixaban, brimonidine eyedrops, glipizide. ALLERGIES: KNOWN ALLERGIES TO DILAUDID. PHYSICAL EXAMINATION: GENERAL: Awake, alert, unable to provide any history. Patient does not know why he is at the hospital. Generalized weakness. The patient is pleasantly confused. VITAL SIGNS: Blood pressure 150/56, heart rate 63 beats per minute, breathing 16 times per minute, temperature of 98.3 degrees Fahrenheit. HEENT AND NECK: Extraocular movements are intact. Sclerae are anicteric. Oral mucosa is moist and clean. No obvious facial weakness. Neck is supple without any lymphadenopathy. No thyromegaly. No JVD. No carotid arterial bruits. LUNGS: Clear to auscultation. No wheezing. No rhonchi. CARDIOVASCULAR SYSTEM: Heart rate is regular in rate and rhythm. S1 and S2 normally audible. No significant murmur or any other abnormal cardiac sounds. ABDOMEN: Soft, nontender. No obvious organomegaly. Bowel sounds are present. No obvious herniation. EXTREMITIES: Without significant cyanosis or edema. Warm to touch. CENTRAL NERVOUS SYSTEM: Alert and oriented x 3. Cranial nerves II-XII are intact. Speech is normal. The patient is able to move all extremities. Normal muscle strength. Deep tendon reflexes are equal on both sides. Plantars were downgoing. LABORATORY DATA: BUN and creatinine 34 and 2.3. Normal CBC. Chest x-ray without any acute abnormality. IMPRESSION: 1. Patient with aspiration of his food, which was suctioned out of his throat [place], [place] PATIENT HISTORY AND PHYSICAL EXAM NAME: THEA MANNING UNIT #: [id number] ROOM: [facility] DOCTOR: MUNA FLORES MD BIRTHDATE: [birth year] and since then his airways have been clean and he has been breathing normally. Repeat chest x-ray has been ordered for tomorrow and he is being treated with IV Zosyn. 2. Patient with trigeminy and quadrigeminy and an episode of 9 beats of ventricular tachycardia. Cardiology has been consulted and his beta blockers have been increased. 3. Adult failure to thrive and multiple falls. We will take fall precautions and bed sore precaution and turn him every 2 hours. 4. History of chronic atrial fibrillation. Heart rates are controlled. Patient anticoagulated with apixaban. 5. Type 2 diabetes mellitus. We will monitor blood sugars. Keep him on a no concentrated sweet diet and treat as necessary. 6. Benign essential hypertension. Blood pressures are treated and controlled. 7. History of coronary artery disease and myocardial infarction, presently without chest pains. MUNA FLORES MD CM:HISPHYS:PATIENT HISTORY AND PHYSICAL EXAMINATION [phone] [id number] MUNA FLORES MD 10/29/17 8077 interface
--- NOTE | ~2017-10-29 | PROC NOTE ---
[place], [place] PROCEDURE NOTE [id number] UN[facility] #: [id number] ROOM: 506 DOCTOR: MICHAEL MCDERMOTT BIRTHDATE: [birth year] DOS: 10/30/2017 MODIFIED BARIUM SWALLOW STUDY PRIMARY PHYSICIAN: Dr. Dial. RADIOLOGIST: Dr. Spencer. ROOM NUMBER: 506 HISTORY OF PRESENT ILLNESS/PAST MEDICAL HISTORY: Patient was admitted to [facility] on 10/29/2017 after a choking incident at his home. The patient reportedly was eating dinner and began coughing due to food being stuck in his throat. EMS was called and patient was brought to the hospital. Food was suctioned from his airway and patient was admitted for evaluation and management. Patient's significant medical history includes failure to thrive, multiple falls, AFib, diabetes mellitus type 2, CAD, HTN, dementia, blindness and history of carotid endarterectomy. He is previously known to TAPING SUPERVISOR service, was evaluated during an inpatient admission in January 2017. At that time, a pureed diet with thin liquids was recommended at the bedside. GENERAL COMMENTS: Patient remained awake, alert and cooperative throughout the encounter. He denied concerns regarding swallowing including coughing during p.o. He endorsed recent choking incident. ORAL MECHANISM/MOTOR SPEECH EXAM: Patient did not fully participate in the exam, possible moderate lingual weakness noted; however, likely exacerbated by limited participation and cognitive status. Patient had upper and lower dentures in place. Volitional cough adequate for shortness. Based on limited sample, patient was 100% comprehensible in a quiet environment. No evidence of motor speech disorder. MBSS METHODS: This exam was viewed in the lateral plane. The patient trialed the following barium impregnated consistencies; thin liquids via straw x 3, teaspoon of pureed x 1 and bites of coarse solids x 2. A 100% feeding assistance was provided due to upper extremity tremulousness. ORAL PHASE: Adequate bolus acceptance with no anterior loss, timely and adequate AP bolus transit, mastication moderately prolonged but complete, no appreciable oral residue. PHARYNGEAL PHASE: Initiation of the swallow response was mild to moderately delayed across consistencies. HLE was adequate in both superior and anterior planes with subsequent complete epiglottic retroflexion. No aspiration or penetration was observed across all trials. Base of tongue to posterior pharyngeal wall contact was adequate. No appreciable pharyngeal residue. UES: Unremarkable. IMPRESSION: Patient presents with mild oropharyngeal dysphagia classified by [place], [place] PROCEDURE NOTE NAME: THEA MANNING UNIT #: [id number] ROOM: [facility] DOCTOR: MICHAEL MCDERMOTT BIRTHDATE: [birth year] prolonged mastication and mild to moderate swallowing delay; however, patient effectively managed all consistencies. No aspiration/penetration was observed. Recommend soft diet with thin liquids and adherence to aspiration precautions listed below. RECOMMENDATIONS: 1. Initiate soft diet with thin liquids. 2. Aspiration precautions, fully upright, away and alert for all p.o., small bites/sips, slow rate of feedings, supervision with p.o., oral care at least b.i.d. PLAP OF CARE: TAPING SUPERVISOR will follow up preferably during a meal to ensure tolerance to diet and promote adherence to aspiration precautions. Please contact the TAPING SUPERVISOR Department at [phone] with any questions/concerns. Thank you for consulting. Michael Julian CM:PROCNOTE:PROCEDURE NOTE [id number] MICHAEL MCDERMOTT
--- NOTE | ~2017-10-29 | CON ---
[place], [place] REPORT OF CONSULTATION NAME: THEA MANNING UNIT #: [id number] ROOM: 506 DOCTOR: LAWANDA FOSTER DPM BIRTHDATE: [birth year] DOS: 10/30/2017 SUBJECTIVE: This patient is seen as consulted for care of elongated and painful toenails on both feet. The patient states he has not had his toenails cut for quite some time. PAST MEDICAL HISTORY: Positive for atrial fibrillation, blindness of both eyes, chronic kidney disease stage 4, hyperlipidemia, hypertension, type 2 diabetes mellitus. ALLERGIES: HYDROMORPHONE. CURRENT MEDICATIONS: Include Toprol, Imdur, Glucotrol, Zocor, miconazole, Toprol-XL, Eliquis, Zosyn. PHYSICAL EXAMINATION: Upon lower extremity physical examination, pedal pulses are barely palpable bilaterally. There is decreased hair growth. Skin temperature is cool to toes. CFT is 2 seconds to all digits. Very mild dependent edema seen bilaterally. Skin is thin and shiny. Sensation appears minimally decreased and symmetrical bilaterally. No paresthesias are seen. There are contracted digits with plantar fat pad atrophy and prominent metatarsal heads noted. No pain to palpation or range of motion of pedal joints. Nails 1 through 5 bilaterally are extremely elongated, thick, brittle, dystrophic with subungual debris present. Mild dry skin is seen throughout both feet with no open areas. No blisters or macerations. No cracks, fissures or rashes. ASSESSMENT: Diabetes mellitus, hammer toe deformity bilaterally, onychomycosis 1 through 5 bilaterally, mild peripheral arterial disease bilaterally. PLAN: Consult is performed. Manual debridement of mycotic nails 1 through 5 bilaterally in length and thickness to the level of the nail bed to reduce hazards such as infection. Discussed with the patient about proper diabetic foot care. Recommend wearing proper shoe gear to minimize risk of ulceration. Follow up the patient in 9 weeks as an outpatient for continued diabetic foot care. Thank you for the opportunity to take part in care of this patient. [place], [place] REPORT OF CONSULTATION NAME: THEA MANNING UNIT #: [id number] ROOM: 506 DOCTOR: LAWANDA FOSTER DPM BIRTHDATE: [birth year] LAWANDA PARAS FOSTER CM:CONSTR:REPORT OF CONSULTATION 1231 10/30/17 1339 interface
--- NOTE | ~2017-10-29 | PR ---
[place], [place] PROGRESS NOTE NAME: THEA MANNING UNIT #: [id number] ROOM: 506 DOCTOR: RAMAKRISHNA BEASLEY MD,MEGAN BIRTHDATE: [birth year] DOS: 10/30/2017 PULMONARY PROGRESS NOTE SUBJECTIVE: The patient's mental status is noted unchanged at this time. He has been known with history of blindness. The patient has not reported any symptoms of chest pain, coughing, or sputum expectoration. The assessment of the patient's swallowing was completed with pending results on this morning of assessment. OBJECTIVE: VITAL SIGNS: For the patient normal temperature, respiratory rate 20, heart rate 61, blood pressure 132/71, oxygen saturation with the patient on room air is 96-100% saturation. HEENT: Examination shows blindness of the eyes. Head was atraumatic. Eyes nonicterus. NECK: Supple. CARDIOVASCULAR: S1, S2 audible. LUNGS: Noted without any wheezing or crackles at the present time. Breaths are noted mildly decreased in the left lower lung. ABDOMEN: Soft, nontender. Bowel sounds present. EXTREMITIES: Without any edema. SKIN: Visible skin, no lesions or rashes. MUSCULOSKELETAL: No deformities. LABORATORY DATA AND IMAGING STUDIES: Chest x-ray, PA and lateral view that was done this morning was reviewed, shows evidence of a left pleural fluid noted, small to moderate amount, possible area of atelectasis as well. The findings are noted more pronounced as previously. CBC of the patient was noted with a normal CBC. IMPRESSION AND PLAN: The patient who has been noted with pleural fluid with possibility of additional atelectasis in the left lower lobe, etiology unclear. Further assessment will be necessary with a clear assessment with use of CT scan of the chest. The patient's swallow study will be monitored. If there is no swallowing difficulty, he could be started on oral diet based on that. If there would be an area of atelectasis, consider doing a bronchoscopy in this patient as well for further assessment of endobronchial tree. Other supportive therapy, plan of management and care plan. Usual care. Additional treatment changes on the patient will be done based on progression of the illness. [place], [place] PROGRESS NOTE NAME: THEA MANNING UNIT #: [id number] ROOM: 506 DOCTOR: MEGAN PAREDES MD BIRTHDATE: [birth year] MEGAN UDRBIN MD CM:PNTRANS [id number] MEGAN BEASLEY MD 10/31/17 015 interface
--- NOTE | ~2017-10-29 | EKG ---
[place], [place] ELECTROCARDIOGRAM REPORT NAME: THEA MANNING UNIT #: [id number] ROOM: 506 DOCTOR: ARACELIS SABILLON,MARIVEL BIRTHDATE: [birth year] DOS: 10/29/2017 TIME: 0022 hours. IMPRESSION: 1. Atrial fibrillation with controlled ventricular rate. 2. Right bundle-branch block. 3. Baseline artifacts. 4. Old inferior infarction. 5. Normal acute interval. MARIVEL HSU MD CM:EKGRPT:ELECTROCARDIOGRAM REPORT [id number] MARIVEL HSU MD
--- NOTE | ~2017-10-29 | PR ---
[place], [place] PROGRESS NOTE [id number] UNIT #: [id number] ROOM: 506 DOCTOR: RAMAKRISHNA BEASLEY MDMEGAN BIRTHDATE: [birth year] DOS: 10/31/2017 PULMONARY PROGRESS NOTE SUBJECTIVE: The patient was seen and examined on 10/31/2017. He has been noted comfortable at this time without any distress, noted awake and alert. The patient has not been noted symptoms of acute shortness of breath. There has not been excessive coughing noted. He remains afebrile as well. He denies symptoms of chest pain, abdominal pain, or headache. Denies symptoms of edema or pain of the lower extremities. His oral appetite was noted fair. Modified barium swallow was completed yesterday. The patient does not show any major aspiration issues. ____ was noted for the patient, which was corrected with the instruction for the patient and the patient can take the food of all consistency. OBJECTIVE: VITAL SIGNS: The vital signs of the patient at 8 o'clock, the patient has normal temperature, respiratory rate 18, heart rate 73, and blood pressure 114/68. The pulse oxygen saturation on room air 96% saturation. HEENT: Examination showed no acute change. NECK: Supple. CARDIOVASCULAR: S1, S2 audible. LUNGS: The patient was noted without any wheezing or crackles. The patient have decreased breaths in the left lower lungs. There were no crackles. ABDOMEN: Soft, nontender. EXTREMITIES: Without any acute edema. CENTRAL NERVOUS SYSTEM: Intact. MUSCULOSKELETAL: No deformities. SKIN: No lesions or rashes. DIAGNOSTIC DATA: CT scan of the chest that was done without contrast yesterday shows evidence of a moderate-sized pleural fluid noted with area of either compression, atelectasis, pneumonia, and other remains in consideration. Possibility of the mass certainly cannot be completely excluded, but difficult to see for the patient's current abnormal pleural fluid, which appeared to be partially loculated as well. Remaining lung was noted clear of any acute infiltration, abdominal masses, or lesions. IMPRESSION: Left pleural fluid of the patient, area of possible atelectasis of the patient, etiology remains unclear. The differential diagnosis would be occluded and consider a possibility of pneumonia. The patient's pleural fluid partially loculated. Underlying malignancy of the patient is the primary of the lung or secondary malignancy or other etiology of the pleural fluid for the patient from inflammatory condition including ____ disorders and others. PLAN OF RECOMMENDATION: The patient was suggested thoracentesis with the ultrasound assessment. The patient's daughter did call me, I spoke with her in the phone in detail about the differential diagnosis, further workup to make further additional diagnostic testing. She declines further testing at this time for father , stating that he is old, he would not require any testing [place], [place] PROGRESS NOTE NAME: THEA MANNING UNIT #: [id number] ROOM: [facility] DOCTOR: MEGAN PAREDES MD BIRTHDATE: [birth year] at this time; however, she would like to have an x-ray repeated, done by the primary care attending, Dr. Dial a couple of years to reassess. If she gets convinced for this patient for further invasive workup and the patient's assessment, she will get the arrangements. At this point of time based on the current discussion, the patient's daughter would not be progressing rather advising any additional testing, a conservative treatment to be advised. The patient could be discharged home on oral antibiotics and monitoring to be continued by the primary care physician, Dr. Dial. MEGAN DURBIN MD CM:PNTRANS [id number] MEGAN BEASLEY MD 11/01/17 0104 interface
[~2017-10-29 00:21] MED LIST changes: +APRESOLINE25 MG PO; +BETIMOL5 M1 OP; +D-1000 185 MG-11 TAB PO; +FUROSEMIDE20 M1 PO; +IMDUR SA60 M1 PO; +LEVAQUIN750 M1 PO; +METOPROLOL SUC100 M1 PO; +NATURE'S BLEND F1 MG PO; +RISPERDAL M-TA0.5 MG BC; +Tobrex Ophth S2.5 ML OPH
[2017-10-29] MEDS ORDERED: GLUCOTROL5 MG PO (00:45)
[2017-10-29] MEDS ORDERED: SIMVASTATIN20 MG PO (00:47)
[2017-10-29] MEDS ORDERED: LOPRESSOR5 MG/5 M1 PO (00:48)
[2017-10-29 00:49] LABS: BASO # 0.1 10*3/uL (0.0-0.1); BASO % 0.7 % (0.0-1.0); EOS # 0.2 10*3/uL (0.0-0.4); EOS % 2.3 % (1.0-4.0); HEMOGLOBIN 14.9 g/dl (14.0-18.0); LYMPH # 1.8 10*3/uL (1.3-4.4); LYMPH % 23.2 % (27.0-41.0); MEAN CELL VOLUME 83.8 fl (80.0-94.0); MEAN CORPUSCULAR HGB 27.7 pg (27.0-31.0); MEAN CORPUSCULAR HGB CONC 33.1 g/dl (33.0-37.0); MEAN PLATELET VOLUME 9.6 fl (9.6-12.3); MONO # 0.5 10*3/uL (0.1-1.0); NEUT # 5.2 10*3/uL (2.3-7.9); NEUT % 67.3 % (47.0-73.0); PLATELET COUNT AUTOMATED 248 10*3/uL (130-400); RED BLOOD COUNT 5.37 10*6/uL (4.50-5.90); RED CELL DISTRI WIDTH 13.9 % (0-14.5); WHITE BLOOD COUNT 7.7 10*3/uL (4.8-10.8)
[2017-10-29] MEDS ORDERED: METOPROLOL SUCC50 M1 PO (00:49)
[2017-10-29 01:09] LABS: ALBUMIN 3.2 gm/dl (3.1-4.5); ALKALINE PHOSPHATASE 50 U/L (45-117); CHLORIDE 104 mmol/L (98-107); CREATININE 2.33 mg/dL (0.70-1.30); POTASSIUM 4.4 mmol/L (3.5-5.1); SODIUM 140 mmol/L (136-145); TOTAL PROTEIN 6.6 gm/dL (6.4-8.2)
[2017-10-29 01:13] LABS: BUN 34 mg/dl (7-24); SGOT/AST 8 IU/L (3-35); SGPT/ALT 13 U/L (12-78)
[2017-10-29 01:18] LABS: TROPONIN I < 0.015 ng/ml (<0.045)
[2017-10-30] VITALS: BP 132/71
[2017-10-30 06:57] LABS: BASO # 0.1 10*3/uL (0.0-0.1); BASO % 0.6 % (0.0-1.0); EOS # 0.3 10*3/uL (0.0-0.4); EOS % 3.1 % (1.0-4.0); HEMATOCRIT 41.3 % (42.0-52.0); HEMOGLOBIN 13.9 g/dl (14.0-18.0); LYMPH # 2.5 10*3/uL (1.3-4.4); MEAN CELL VOLUME 82.8 fl (80.0-94.0); MEAN CORPUSCULAR HGB 27.9 pg (27.0-31.0); MEAN CORPUSCULAR HGB CONC 33.7 g/dl (33.0-37.0); MEAN PLATELET VOLUME 9.8 fl (9.6-12.3); MONO # 0.6 10*3/uL (0.1-1.0); MONO % 7.1 % (3.0-9.0); NEUT # 4.6 10*3/uL (2.3-7.9); NEUT % 57.7 % (47.0-73.0); PLATELET COUNT AUTOMATED 225 10*3/uL (130-400); RED BLOOD COUNT 4.99 10*6/uL (4.50-5.90)
[2017-10-30 08:00] VITALS: BP 150/78
[2017-10-30 20:00] VITALS: BP 128/75
[2017-10-31] VITALS: BP 105/65
[2017-10-31 08:00] VITALS: BP 114/68
[2017-10-31 14:00] VITALS: BP 100/70
[2017-10-31 16:00] VITALS: BP 104/71
[2017-10-31] MEDS ORDERED: AUGMENTIN 875-875 MG PO (18:30)
== END 2017-10-31 20:25 | disposition home health service (06) | DRG 154 ==
LOC: ED 00:21 → 5E 02:52
PROVIDERS: Emergency Medicine; Internal Medicine
DX: T17.220A Food in pharynx causing asphyxiation, initial encounter (principal); J69.0 Pneumonitis due to inhalation of food and vomit; I47.2 Ventricular tachycardia; J90 Pleural effusion, not elsewhere classified; N18.4 Chronic kidney disease, stage 4 (severe); E11.22 Type 2 diabetes mellitus with diabetic chronic kidney disease; I48.2 Chronic atrial fibrillation; E11.51 Type 2 diabetes mellitus with diabetic peripheral angiopathy without gangrene; I13.0 Hypertensive heart and chronic kidney disease with heart failure and stage 1 through stage 4 chronic kidney disease, or unspecified chronic kidney disease; I50.9 Heart failure, unspecified; B35.1 Tinea unguium; R62.7 Adult failure to thrive; R29.6 Repeated falls; I25.10 Atherosclerotic heart disease of native coronary artery without angina pectoris; E78.5 Hyperlipidemia, unspecified; H54.7 Unspecified visual loss; X58.XXXA Exposure to other specified factors, initial encounter; R09.89 Other specified symptoms and signs involving the circulatory and respiratory systems; M20.41 Other hammer toe(s) (acquired), right foot; M20.42 Other hammer toe(s) (acquired), left foot; F03.90 Unspecified dementia, unspecified severity, without behavioral disturbance, psychotic disturbance, mood disturbance, and anxiety; I25.5 Ischemic cardiomyopathy; R13.12 Dysphagia, oropharyngeal phase; Z88.8 Allergy status to other drugs, medicaments and biological substances; Z79.899 Other long term (current) drug therapy; Z87.01 Personal history of pneumonia (recurrent); Z90.49 Acquired absence of other specified parts of digestive tract; Z79.01 Long term (current) use of anticoagulants; I25.2 Old myocardial infarction; Z82.49 Family history of ischemic heart disease and other diseases of the circulatory system; Y93.89 Activity, other specified; Y92.89 Other specified places as the place of occurrence of the external cause; Y99.8 Other external cause status